=== PATIENT | female | born 1950 | race American Indian/Alaskan Native ===

== ENCOUNTER 2018-12-22 16:06 | Outpatient (CLI) | payer MEDICARE ==
[2018-12-22 17:04] LABS: Albumin 3.6 g/dL (3.9-5); Calcium 10.4 mg/dL (8.4-10.2)
== END 2018-12-22 16:07 | disposition home or self-care (01) ==
LOC: LAB 16:06
PROVIDERS: ATTEND Internal Medicine
DX: I12.9 Hypertensive chronic kidney disease with stage 1 through stage 4 chronic kidney disease, or unspecified chronic kidney disease (principal); E11.22 Type 2 diabetes mellitus with diabetic chronic kidney disease; E11.21 Type 2 diabetes mellitus with diabetic nephropathy; N18.3 Chronic kidney disease, stage 3 (moderate); D64.9 Anemia, unspecified; R94.4 Abnormal results of kidney function studies; N17.9 Acute kidney failure, unspecified; R80.0 Isolated proteinuria; E87.0 Hyperosmolality and hypernatremia
CPT/HCPCS: 36415; 80048; 82040; 84100

== ENCOUNTER 2021-10-09 09:59 | Outpatient (CLI) | payer MEDICARE ==
[2021-10-09 10:36] LABS: Hematocrit 27.5 % (30.3-42.9); Hemoglobin 8.7 gm/dl (10.1-14.3); Mean Corpuscular HGB Conc 32 % (30-34); Mean Corpuscular Volume 88 fl (79-97); Platelet Count 215 K/mm3 (140-440); Red Blood Count 3.14 M/mm3 (3.65-5.03); Red Cell Distribution Width 14.4 % (13.2-15.2)
[2021-10-09 10:56] LABS: Albumin 3.7 g/dL (3.9-5); Calcium 8.8 mg/dL (8.4-10.2)
== END 2021-10-09 10:00 | disposition home or self-care (01) ==
LOC: LAB 09:59
PROVIDERS: ATTEND Internal Medicine
DX: R94.4 Abnormal results of kidney function studies (principal); N17.9 Acute kidney failure, unspecified
CPT/HCPCS: 36415; 80048; 82040; 84100; 85027